=== PATIENT | male | born 1970 | race Caucasian/White ===

== ENCOUNTER 2024-09-11 17:21 | Emergency (ER) | payer OTHER, SELFPAY ==
[2024-09-11 17:25] VITALS: BP 133/87
[2024-09-11 17:46] LABS: % Basophils 0.5 % (0-2); % Eosinophils 2.3 % (0-6); % Immature Granulocytes 0.2 % (0-0.5); % Lymphocytes 25.9 % (20.5-51.1); % Monocytes 7.3 % (1.7-9.3); % Neutrophils 63.8 % (42.2-75.2); Absolute Eosinophils 0.2 10^3/uL (0-0.7); Absolute Lymphocytes 2.2 10^3/uL (1.2-3.4); Absolute Monocytes 0.6 10^3/uL (0.1-0.6); Absolute Neutrophils 5.4 10^3/uL (1.4-6.5); Hematocrit 42.6 % (39.0-52.0); Hemoglobin 15.6 g/dL (13.0-18.0); Mean Corp Hgb Conc. 36.6 g/dL (33.0-37.0); Mean Corpuscular Hgb 33.3 pg (27.0-31.0); Mean Corpuscular Volume 90.8 fL (80.0-94.0); Mean Platelet Volume 10.7 fL (7.4-10.4); Nucleated Red Blood Cells % 0 % (-); Platelet Count 100 10^3/uL (130-400); Red Blood Cell Count 4.69 10^6/uL (4.70-6.10); Red Cell Dist. Width 12.7 % (11.5-14.5); White Blood Cell Count 8.4 10^3/uL (4.8-10.8)
[2024-09-11 17:54] LABS: INR 1.03
[2024-09-11 18:02] LABS: ALT (SGPT) 18 U/L (0-50); AST (SGOT) 25 U/L (17-59); Albumin 4.8 g/dl (3.5-5.0); Alkaline Phosphatase 64 U/L (38-126); Blood Urea Nitrogen 12 mg/dl (9-20); Calcium 9.9 mg/dl (8.4-10.2); Carbon Dioxide 23 mmol/L (22-30); Chloride 109 mmol/L (98-107); Glucose 110 mg/dl (70-99); Potassium 3.8 mmol/L (3.5-5.1); Sodium 141 mmol/L (135-145); Total Bilirubin 0.7 mg/dl (0.2-1.3); Total Protein 7.6 g/dl (6.3-8.2); eGFR > 60.00
[2024-09-11 18:07] LABS: Troponin I < 0.012 ng/ml
[2024-09-11 21:49] LABS: Troponin I < 0.012 ng/ml
[2024-09-11 23:13] VITALS: BMI 28.0
--- NOTE | 2024-09-11 23:24 | ED.GENMED ---
History of Present Illness
General
Chief Complaint: Chest Pain
Source: patient
Exam Limitations: none
Time Seen by Provider: 09/11/24 23:22
Nursing documentation reviewed up to this point in time: agreed with
History of Present Illness
History of Present Illness:
54-year-old female with a past medical history of alcohol abuse, tobacco use, presents emergency department today with concerns of chest pain. Patient reports that this pain has been going on constantly for the past 16 hours or so. Patient reports
that the pain started after eating dinner yesterday evening. Patient reports that it felt like bad heartburn/indigestion however he was taking an acids and this did not help the pain. Patient denies any abdominal pain. Patient states that the
pain starts in his throat as a burning sensation and goes down to his mid chest. He also notes difficulty swallowing at times. He denies any sore throat. He denies any fevers or chills. He denies any family history of early cardiac disease. He
denies any personal history of coronary disease. 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 He denies any travel car plane greater than 8 hours. He denies any swelling in his legs. He denies any shortness of breath. He denies any back
pain. He denies any heavy lifting or any trauma to the chest wall.
Past History
Past History
ED Past Medical History: None
ED Past Surgical History: Other (septoplasty)
Social History
Tobacco: Non-smoker
Alcohol: Daily
Drug: None
Personal:
Living: alone
Review of Systems
Review of Systems
All Other Systems: ROS reviewed and negative except as documented in HPI and ROS
Phy Exam
Physical Exam
Physical Exam:
General: Patient is well appearing and in no acute distress; non-toxic
Skin: Warm and dry, no rashes or lesions
Head: Normocephalic, atraumatic
Eyes: Sclera non-icteric. EOMs intact.
Cardiac: Regular rate and rhythm, no murmurs, no tenderness to palpation of the external chest wall
Peripheral Vascular: 2+ radial pulses bilaterally
Pulm: Normal respiratory effort, no wheezes, rales, rhonchi
Abdomen: No abdominal tenderness to palpation
Neuro: CN II-XII intact, no focal neurologic deficits.
Psychiatric: Appropriate mood and affect.
Scores
Heart Score for Chest Pain Patients
STEMI patient?: No
History: Slightly or Non-Suspicious
ECG: Normal
Age: >45 - <65 years
Risk Factors: 1 or 2 Risk Factors
Troponin: </= Normal Limit
Heart Score for Chest Pain Patients: 2
Heart Score Risk: 2.5% MACE over next 6 weeks
Course
Orders/Labs/Results
Orders:
Orders
09/11/24 17:23
Electrocardiogram (*1) Urgent
Reason for Study: Chest Pain
09/11/24 17:24
EKG- Treatment ONCE
09/11/24 17:33
Complete Blood Count/With Diff Urgent
Comprehensive Metabolic Panel Urgent
Lipase Urgent
Comment: ADD ON
Prothrombin Time Urgent
Troponin I Urgent
09/11/24 20:55
Electrocardiogram (*1) Urgent
Reason for Study: Chest Pain
Other Reason for Exam: 3 hour repeat trop&ekg
09/11/24 20:56
EKG- Treatment ONCE
09/11/24 21:10
Troponin I Urgent
09/11/24 23:23
CR Chest - 2 Views Urgent
Comment:
Reason For Exam: chest pain
09/11/24 23:35
Add On- LAB Urgent
Tests Added?: lipase
Famotidine [Pepcid] 20 mg PO NOW STA
Mag Hydrox/Al Hydrox/Simeth [Maalox] 30 ml Phenobarb/Hyoscy/Atropine/Scop [] 10 ml PO NOW
09/12/24 00:02
Mag Hydrox/Al Hydrox/Simeth [Maalox] 30 ml .ROUTE .STK-MED ONE
Phenobarb/Hyoscy/Atropine/Scop [] 10 ml .ROUTE .STK-MED ONE
Abnormal Lab Results
09/11/24
17:33
RBC 4.69 L 10^6/uL
(4.70-6.10)
MCH 33.3 H pg
(27.0-31.0)
Plt Count 100 L 10^3/uL
(130-400)
MPV 10.7 H fL
(7.4-10.4)
Chloride 109 H mmol/L
(98-107)
Glucose 110 H mg/dl
(70-99)
09/11/24 17:33
09/11/24 17:33
Vital Signs
Initial and Last Documented VS:
Initial Vital Signs
Temp Pulse Resp BP Pulse Ox
98.8 F 62 17 133/87 99
09/11/24 17:25 09/11/24 17:25 09/11/24 17:25 09/11/24 17:25 09/11/24 17:25
Last Documented Vital Signs
Temp Pulse Resp BP Pulse Ox
98.8 F 47 23 123/76 94
09/11/24 17:25 09/12/24 00:15 09/12/24 00:15 09/12/24 00:09 09/12/24 00:15
MDM/Problems Addressed
Differential Diagnosis Includes:
ddx include GERD, ACS, costochondritis, pneumothorax, musculoskeletal sprain/strain
MDM/Problems Addressed:
54-year-old male presents to the emergency department today with concerns of chest pain. Patient compares it to indigestion and states that it feels like when he has had heartburn in the past. It avila not get better with antacidss. It has been
present for almost 24 hours. Patient on exam is well-appearing in no acute distress. He questions whether could be musculoskeletal causes symptoms. Pain seems to start in the lower throat. He denies any neck pain. He states he does have
difficulty swallowing at times but has been able to eat food without difficulty. Physical exam patient is well-appearing in no acute distress. He is protecting his airway. There is no pharyngeal erythema. He has no chest wall tenderness. He has
no abdominal tenderness. He is overall well-appearing. While in the emergency department, he had 2 undetectable troponins and 2 EKGs demonstrating sinus bradycardia. Patient states that he has a known history of low blood pressure and lower heart
rate. Symptoms did seem to improve a bit with the GI cocktail---initially pain was persistent but after the GI cocktail pain became intermittent and he does not notice it as much as before. In light of the globus sensation in the throat (with
toleration of oral intake), burning sensation, improvement with GI cocktail, suspect GERD will initiate PPI trial. Patient states that he will call his family doctor within a few days for reassessment. Did discuss d-dimer and PE as a ddx. Patient
requesting to go home. I think this is reasonable as patient is not hypoxic, not tachycardic, has no shortness of breath. Patient stable for discharge.
Chronic conditions affecting care:
hx of smoking
*Pulse Oximetry
Patient hypoxic: no
*Critical Care Note
Total Time (30-74mins, 75-104mins- exclusive of procedures): Not Applicable
Data Reviewed
Review of Other/Old Records Reveals: Records (Reviewed ER physician documentation from 01/24/2023 patient seen for alcohol withdrawal symptoms) and Discharge Summary (Reviewed discharge summary from 03/04/2022 patient seen for gluteal abscess and had
CT-guided drain placed)
Source: patient and records
ED Attending Note
-
Portions of this chart may have been created with voice recognition software.� Occasional wrong word or��sound alike� substitutions may have occurred due to the inherent limitations of voice recognition software.
Discharge Plan
Departure
Patient Disposition: Home (Routine Discharge)
Date of Disposition: 09/12/24
Time of Disposition: 00:26
Patient with high blood pressure during this ER visit?: No
Condition: Good
Discharge Problem:
Chest pain, Burning sensation of throat
Instructions: Chest pain, BLOOD PRESSURE
Prescriptions:
New
pantoprazole 20 mg tablet,delayed release (DR/EC)
20 mg PO DAILY 14 Days Qty: 14 0RF
No Action
escitalopram oxalate [Lexapro] 20 mg Tablet
20 mg PO DAILY
Referrals:
Rhona Fernández MD [Active] - Call in 1-3 days for appt
UNKNOWN,NO INTERVIEW [Family Provider] -
Charles Maurice DO [Active] - Call in 1-3 days for appt
Activity Restrictions/Additional Instructions:
Pantoprazole has been sent to your pharmacy. This medication is in the class of PPIs. Please take 1 tablet once daily for 2-week trial.
Please follow-up with your primary care provider. Please call today for follow-up appointment in the coming days for reassessment and to ensure the resolution of your symptoms. Your CBC and CMP blood work is unremarkable. Your troponin cardiac
enzymes are undetectable. Your EKG shows normal sinus rhythm.
PLEASE RETURN EMERGENCY DEPARTMENT SHOULD YOU DEVELOP SHORTNESS OF BREATH, FEVERS OR CHILLS, DIFFICULTY BREATHING, ACUTE WORSENING OF YOUR OF YOUR PAIN, IF THE PAIN DOES NOT RESOLVE, IF THE PAIN GOES DOWN YOUR LEFT ARM OR INTO YOUR JAW, BACK PAIN,
WEAKNESS IN 1 SIDE BODY VERSUS OTHER, OR ANY OTHER SIGNS OR SYMPTOMS CONCERNING TO YOU.
Interventions
Interventions:
*Risk Screen - Suicide Last Done: 09/11/24 17:26
*General Assessment Last Done: 09/11/24 17:26
*Neglect/Abuse Screening Last Done: 09/11/24 17:26
*ED- Fall Risk Assessment Last Done: 09/12/24 01:20
*ED COVID-19 Vaccine History Last Done: 09/11/24 17:26
*Nursing Disposition Last Done: 09/12/24 01:20
ED- Cardiac Assessment Last Done: 09/11/24 23:14
Discharge Date and Time
Discharge Date/Time: 09/12/24 01:21
Print Language: LATVIAN
[2024-09-12] MEDS: PEPCID 20 MG PO (00:05)
[2024-09-12] MEDS: MAALOX 40 PO (00:05)
[2024-09-12 00:09] VITALS: BP 123/76
[2024-09-12 00:17] LABS: Lipase 233 U/L (23-300)
== END 2024-09-12 01:21 | disposition home or self-care (01) ==
LOC: EMR 17:21
PROVIDERS: Emergency Medicine; Student in an Organized Health Care Education/Training Program; EMERGENCY PHYSICIAN Student in an Organized Health Care Education/Training Program
DX: R07.89 Other chest pain (principal); R07.0 Pain in throat
CPT/HCPCS: 99285; 71046; 80053; 83690; 84484; 85025; 85610; 93005